=== PATIENT | female | born 1980 | race Asian ===

== ENCOUNTER 2017-10-29 15:35 | Emergency (ER) | payer OTHER ==
[~2017-10-29] VITALS: Ht 152.4 cm; Wt 47.0 kg
[2017-10-29 16:38] LABS: HEMATOCRIT 36.5 % (36.0-46.0); HEMOGLOBIN 12.8 G/DL (11.9-15.5); MCH 30.7 PG (29.0-34.0); MCHC 35.1 G/DL (30.0-36.0); MCV 87.5 FL (83-99); PLATELET COUNT 296 K/uL (156-360); RBC DIS.WIDTH-CV 12.5 % (11.8-14.6); RBC DIS.WIDTH-SD 39.8 % (39-53); RED BLOOD COUNT 4.17 M/uL (3.80-5.20); WHITE BLOOD COUNT 3.9 K/uL (4.1-10.2)
[2017-10-29 16:46] LABS: CHLORIDE 104 mEq/L (99-109); POTASSIUM 3.4 mEq/L (3.7-5.4); SODIUM 139 mEq/L (136-147)
[2017-10-29 16:47] LABS: GLUCOSE 133 mg/dL (70-99)
[2017-10-29 16:51] LABS: CREATININE 0.8 mg/dL (0.6-1.3); GFR ESTIMATE (CALCULATED) > 59 mL/min/
[2017-10-29 16:52] LABS: UREA NITROGEN (BUN) 16 mg/dL (9-23)
[2017-10-29 16:59] LABS: TROP-I INTERPRETATION NEGATIVE; TROPONIN-I < 0.01 ng/mL (0.0-0.30)
[2017-10-29 17:14] LABS: ERTH.SED.RATE 71 MM/HR (0-20)
[2017-10-29] MEDS ORDERED: NAPROSYN500 MG PO (18:24)
[2017-10-29] MEDS ORDERED: NORVASC5 MG PO (18:24)
[2017-10-29 19:29] VITALS: BP 149/98
[2017-10-30 12:30] LABS: LYME DISEASE SEROLOGY SCREEN NEGATIVE (NEGATIVE)
== END 2017-10-29 19:29 | disposition home or self-care (01) ==
LOC: EME 15:35
PROVIDERS: Nurse Practitioner Family
DX: I10 Essential (primary) hypertension (principal); M79.1 Myalgia; A69.20 Lyme disease, unspecified
CPT/HCPCS: 70450; 71046; 80048; 84484; 85027; 85651; 86618; 93005; 99281; 99284; J0360; J7030